=== PATIENT | female | born 1975 | race Hispanic/Latino ===

== ENCOUNTER 2017-05-02 11:21 | Outpatient (CLI) | payer OTHER ==
--- NOTE | 2017-05-02 15:47 | Mammography Report ---
BILATERAL DIGITAL SCREENING MAMMOGRAM with CAD: 05/02/17 11:21:00 CLINICAL: Routine screening. COMPARISON: None available. FINDINGS: There are bilateral scattered areas of fibroglandular density.No mass, architectural distortion or suspicious calcifications. IMPRESSION: No mammographic evidence of malignancy. BI-RADS CATEGORY: 1 -- Negative RECOMMENDATION: Routine mammographic screening in one year. COMMENT: Patient follow-up letters are generated by our [employer] application.
== END 2017-05-02 11:22 | disposition home or self-care (01) ==
LOC: SPVWC 11:21
PROVIDERS: ATTEND Internal Medicine
DX: Z12.31 Encounter for screening mammogram for malignant neoplasm of breast (principal)
CPT/HCPCS: 77067; G0202

== ENCOUNTER 2018-08-14 08:30 | Outpatient (CLI) | payer OTHER ==
--- NOTE | 2018-08-14 13:38 | Mammography Report ---
BILATERAL DIGITAL SCREENING MAMMOGRAM with CAD: 08/14/18 08:30:00 CLINICAL: Routine screening. COMPARISON:05/02/17 FINDINGS: The breasts are mostly fatty. No mass, architectural distortion or suspicious calcifications. IMPRESSION: No mammographic evidence of malignancy. BI-RADS CATEGORY: 1 - - Negative RECOMMENDATION: Routine mammographic screening in one year. COMMENT: Patient follow-up letters are generated by our [employer] application.
== END 2018-08-14 08:31 | disposition home or self-care (01) ==
LOC: SPVWC 08:30
PROVIDERS: ATTEND Internal Medicine
DX: Z12.31 Encounter for screening mammogram for malignant neoplasm of breast (principal)
CPT/HCPCS: 77067

== ENCOUNTER 2018-11-22 09:06 | Outpatient (CLI) | payer OTHER ==
[2018-11-22 09:54] LABS: Blood Urea Nitrogen 9 mg/dL (7-17)
--- NOTE | 2018-11-22 12:30 | Cat Scan Report ---
CT ABDOMEN WITH CONTRAST HISTORY: Right upper quadrant abdominal pain. COMPARISON: Ultrasound abdomen limited dated 08/21/18. FINDINGS: The visualized lung bases are well aerated. Normal heart size. No hernia. There is mild fatty infiltration throughout the liver parenchyma. The liver is normal size on CT. No evidence for surface nodularity or focal mass. The gallbladder has been surgically removed. No biliary dilatation. The pancreas, spleen, kidneys and adrenal glands are unremarkable. The aorta is normal caliber. There is moderate stool in the colon. The visualized bowel loops are within normal limits otherwise. No evidence for focal inflammation or obstruction. Normal appendix. No evidence for ascites, inflammatory changes or free air. The bony structures are intact. IMPRESSION: Mild fatty infiltration of the liver parenchyma. No focal mass or enlargement. Cholecystectomy. Mild constipation. No acute process is appreciated.
== END 2018-11-22 09:07 | disposition home or self-care (01) ==
LOC: CT 09:06
PROVIDERS: ATTEND Internal Medicine
DX: K76.0 Fatty (change of) liver, not elsewhere classified (principal); K59.00 Constipation, unspecified; Z90.49 Acquired absence of other specified parts of digestive tract
CPT/HCPCS: 36415; 74160; 82565; 84520; Q9967